=== PATIENT | female | born 1980 | race Caucasian/White ===

== ENCOUNTER → 2023-04-18 13:43 | Outpatient (CLI) | payer BC, SELFPAY ==
--- NOTE | ~2023-04-18 | US_ITS ---
EXAMINATION: US pelvic limited DATE: 04/18/2023 13:58 INDICATION: N32.89 - Other specified disorders of bladder . TECHNIQUE: Limited grayscale and Doppler ultrasound images of the pelvis were obtained. COMPARISON: None. FINDINGS: Prevoid bladder volume 788 mL. No bladder wall thickening or mass detected. Suggestion of d ependent intraluminal debris. Post void bladder volume 18 mL. IMPRESSION: No echogenic focus to suggest calcification. Consider pelvic radiography for further evaluation of th e described possible pelvic calcification. Suggestion of intraluminal debris which may be proteinaceous, hemorrhagic, crystalline material. Marjorie elate with urinalysis. Post void residual volume of 18 mL. Reviewed, dictated and finalized at location K. [employer] IMPRESSION: No echogenic focus to suggest calcification. Consider pelvic radiography for fu rther evaluation of the described possible pelvic calcification. Suggestion of intraluminal debris which may be proteinaceous, hemorrhagic, samira talline material. Correlate with urinalysis. Post void residual volume of 18 mL.
== END ==
PROVIDERS: PCP Family Medicine; Visit Provider Family Medicine
DX: N32.89 Other specified disorders of bladder (principal)
CPT/HCPCS: 76857

== ENCOUNTER → 2023-04-23 12:46 | Outpatient (CLI) | payer BC, SELFPAY ==
--- NOTE | ~2023-04-23 | XR_ITS ---
EXAMINATION: XR pelvis 1-2V DATE: 04/23/2023 13:25 INDICATION: Bladder wall calcification. TECHNIQUE: An anteroposterior view of the pelvis was obtained. COMPARISON: None. FINDINGS: Bone alignment is normal. No fracture. Joint spaces are normal. IMPRESSION: 1. No visible bladder wall calcification. Reviewed, dictated and finalized at location E. APIST
== END ==
PROVIDERS: PCP Family Medicine; Visit Provider Family Medicine
DX: N32.89 Other specified disorders of bladder (principal)
CPT/HCPCS: 72170